=== PATIENT | male | born 1995 | race Two or more races ===

== ENCOUNTER 2017-05-10 15:12 | Outpatient (CLI) | payer OTHER ==
--- NOTE | 2017-05-10 19:19 | XRAY Report ---
EXAM: SPINE SCOLIOSIS RADIOGRAPHY EXAM DATE: 05/10/2017 03:54 PM. CLINICAL HISTORY: SCOLIOSIS screening. COMPARISONS: None. TECHNIQUE: 8 Views, includes supine and standing images. FINDINGS: Mild dextroscoliosis in the thoracic spine, angle of 12 degrees, apex at T6-T7, measured on the standing view. No significant scoliosis in the lumbar spine. No significant spondylolisthesis. No segmental anomaly seen. No acute bone findings are seen. Mild anterior wedging of T12 and L1 verte bral bodies most consistent with normal variants. Soft tissues appears unremarkable. IMPRESSION: Mild dextroscoliosis in the thoracic spine. [facility] Referring Provider Line: [phone] SITE ID: [id number]
== END 2017-05-10 15:13 | disposition home or self-care (01) ==
LOC: DI 15:12
PROVIDERS: ATTEND Family Medicine
DX: M41.84 Other forms of scoliosis, thoracic region (principal); M54.6 Pain in thoracic spine
CPT/HCPCS: 72082

== ENCOUNTER 2017-12-04 13:29 | Outpatient (CLI) | payer OTHER ==
[2017-12-04] MEDS ORDERED: BARIUM SULFATE 135 ML BOTTLE PO ONE (13:59)
[2017-12-04] MEDS ORDERED: BARIUM SULFATE 148 GM POWDER PO ONE (13:59)
--- NOTE | 2017-12-04 15:50 | XRAY Report ---
ESOPHAGRAM: 12/04/2017 CLINICAL INDICATION: Reflux. FINDINGS: Esophagram was performed in the upright and prone positions. The esophagus is normal in caliber and contractility. No esophageal ulceration, mass lesion, or stricturing is identified. The hypopharynx appears unremarkable. There was gastroesophageal reflux during the course of the study. A 13 mm barium pill passed freely through the esophagus and into the stomach. IMPRESSION: GASTROESOPHAGEAL REFLUX, BUT NO EVIDENCE OF ESOPHAGEAL ULCERATION OR MASS LESION. FLUOROSCOPY TIME: 1 MINUTE 52 SECONDS; 16 SPOT IMAGES OBTAINED. TD: 12/04/2017 15:49
== END 2017-12-04 13:30 | disposition home or self-care (01) ==
LOC: DI 13:29
PROVIDERS: ATTEND Physician Assistant Medical
DX: K21.9 Gastro-esophageal reflux disease without esophagitis (principal)
CPT/HCPCS: 74220; A9270

== ENCOUNTER 2018-11-08 17:18 | Emergency (ER) | payer OTHER ==
[2018-11-08] MEDS ORDERED: SODIUM CHLORIDE 0.9% 1,000 ML IV ONE (20:02)
[2018-11-08] MEDS ORDERED: DEXAMETHASONE 10 MG/ML VIAL IVP STA ×2 (20:02→22:35)
[2018-11-08] MEDS ORDERED: cefTRIAXone 1 GM in SODIUM CHLORIDE 0.9% MINIBAG 100 ML IV STA (20:02)
[2018-11-08 20:17] LABS: BASOPHILS # (AUTO) 0.1 10^3/uL (0.0-0.1); BASOPHILS % (AUTO) 0.9 %; EOSINOPHILS # (AUTO) 0.2 10^3/uL (0.0-0.7); EOSINOPHILS % (AUTO) 2.5 %; HGB - HEMOGLOBIN 15.7 g/dL (14.0-18.0); LYMPHOCYTES # (AUTO) 1.3 10^3/uL (1.5-3.5); LYMPHOCYTES % (AUTO) 15.7 %; MEAN PLATELET VOLUME 7.6 fL (7.4-11.4); MONOCYTES # (AUTO) 0.7 10^3/uL (0.0-1.0); MONOCYTES % (AUTO) 8.4 %; NEUTROPHILS # (AUTO) 6.1 10^3/uL (1.5-6.6); NEUTROPHILS % (AUTO) 72.5 %; PLT - PLATELET COUNT 233 10^3/uL (130-450); RED CELL DISTRIBUTION WIDTH 12.3 % (12.0-15.0); WHITE BLOOD COUNT 8.4 x10^3/uL (4.8-10.8)
--- NOTE | 2018-11-08 20:22 | ED Physician Documentation ---
PD HPI HEENT - Stated complaint Stated Complaint: SORE/SWOLLEN THROAT - Chief complaint Chief Complaint: Heent PD PAST MEDICAL HISTORY - Past Medical History Respiratory: Asthma - Past Surgical History Past Surgical History: No - Present Medications Home Medications: Ambulatory Orders Medication Instructions Recorded Confirmed Amox/Clav 875/125 [Augmentin] 1 each PO Q12H #20 tablet 11/08/18 predniSONE [Deltasone] 10 mg PO [id number] #42 tab 11/08/18 - Allergies Allergies/Adverse Reactions: Allergies Allergy/AdvReac Type Severity Reaction Status Date / Time No Known Drug Allergies Allergy Verified 11/08/18 18:04 - Social History Does the pt smoke?: No Smoking Status: Never smoker Does the pt drink ETOH?: No Does the pt have substance abuse?: No - Immunizations Immunizations are current?: Yes Results - Vitals Vitals: Vital Signs - 24 hr 11/08/18 11/08/18 18:00 20:29 Temperature 36.4 C L 36.7 C Heart Rate 90 71 Respiratory 16 14 Rate Blood Pressure 125/94 H 118/70 O2 Saturation 97 99 Oxygen O2 Source Room air - Labs Labs: Laboratory Tests 11/08/18 11/08/18 11/08/18 19:49 20:11 20:11 WBC 8.4 RBC 5.40 Hgb 15.7 Hct 44.8 MCV 83.0 MCH 29.0 MCHC 35.0 RDW 12.3 Plt Count 233 MPV 7.6 Neut # (Auto) 6.1 Lymph # (Auto) 1.3 L [place] # (Auto) 0.7 Eos # (Auto) 0.2 Baso # (Auto) 0.1 Absolute Nucleated RBC 0.00 Nucleated RBC % 0.0 Sodium Potassium Chloride Carbon Dioxide Anion Gap BUN Creatinine Estimated GFR (MDRD) Glucose Calcium Total Bilirubin AST ALT Alkaline Phosphatase Total Protein Albumin Globulin Albumin/Globulin Ratio Lipase Infectious [place] Assay NEGATIVE Group A Strep Rapid Negative 11/08/18 20:11 WBC RBC Hgb Hct MCV MCH MCHC RDW Plt Count MPV Neut # (Auto) Lymph # (Auto) [place] # (Auto) Eos # (Auto) Baso # (Auto) Absolute Nucleated RBC Nucleated RBC % Sodium 137 Potassium 3.8 Chloride 97 L Carbon Dioxide 30 Anion Gap 10.0 BUN 11 Creatinine 0.8 Estimated GFR (MDRD) 121 Glucose 97 Calcium 9.2 Total Bilirubin 1.5 H AST 18 ALT 16 Alkaline Phosphatase 37 L Total Protein 8.6 H Albumin 4.3 Globulin 4.3 H Albumin/Globulin Ratio 1.0 Lipase 27 Infectious [place] Assay Group A Strep Rapid Departure - Departure Disposition: Home, Self Care Clinical Impression: Peritonsillar abscess Condition: Good Instructions: Peritonsillar Abscess Follow-Up: [facility] [Provider Group] - Tomorrow (Call first thing in the morning to schedule an appointment for tomorrow) Prescriptions: Amox/Clav 875/125 [Augmentin] 1 each PO Q12H #20 tablet predniSONE [Deltasone] 10 mg PO [id number] #42 tab Comments: Please return to the emergency department for worsening symptoms or any concerns
[2018-11-08 20:28] LABS: ALBUMIN 4.3 g/dL (3.2-5.5); BILIRUBIN,TOTAL 1.5 mg/dL (0.2-1.0); CALCIUM 9.2 mg/dL (8.5-10.3); CREATININE 0.8 mg/dL (0.6-1.2); TOTAL PROTEIN 8.6 g/dL (6.7-8.2)
[2018-11-08] MEDS ORDERED: IOVERSOL 320 100 ML VIAL IVP ONE ×2 (21:06→21:24)
--- NOTE | 2018-11-08 21:45 | CT Report ---
Reason: left sided swelling, Evaluate for Localized fluid Procedure Date: 11/08/2018 Accession Number: [id number] / [id number] Procedure: CT - Neck Soft Tissue W/ CPT Code: FULL RESULT: EXAM: CT SOFT TISSUE NECK WITH CONTRAST. EXAM DATE: 11/08/2018 09:27 PM. HISTORY: 23-year-old man with left-sided swelling. Concern for localized fluid. COMPARISONS: None. TECHNIQUE: Routine soft tissue neck CT protocol. Reconstructions: Coronal and sagittal. IV contrast: 72ml [id number]. In accordance with CT protocol optimization, one or more of the following dose reduction techniques were utilized for this exam: automated exposure control, adjustment of mA and/or KV based on patient size, or use of iterative reconstructive technique. FINDINGS: Visualized Intracranial Contents: Unremarkable. Orbits: Unremarkable. Sinuses: Minimal mucosal thickening is present in the paranasal sinuses. Mastoid air cells are clear. Pharynx and Oral Cavity: There is enlargement of the right palatine tonsil with peripherally enhancing fluid collection and measures 2.1 cm AP by 1.6 cm transverse by 1.9 cm craniocaudal, and sister with peritonsillar abscess. There is minimal stranding in the adjacent parapharyngeal fat planes. Larynx: Symmetric without mass lesion. True vocal cords are symmetric. Airway is widely patent. Parotid and Submandibular Glands: Normal. Lymph Nodes and Soft Tissues: Lymph nodes are mildly enlarged along the right cervical chain, consistent with reactive lymphadenopathy. Soft tissues are unremarkable. No mass lesion or abnormal enhancement. Thyroid: Normal. Lung Apices: Clear. Bones: No acute fracture or malalignment. IMPRESSION: 1. Peripherally enhancing fluid collection at the right palatine tonsil measuring 2.1 x 1.6 x 1.9 cm, most consistent with peritonsillar abscess. [facility]
[2018-11-08] MEDS ORDERED: BENZOCAINE SPRAY MM SCH (22:00)
[2018-11-08] MEDS ORDERED: CHERRY SYRUP 10 ML UDC PO ONE (22:17)
[2018-11-08 23:32] VITALS: BP 125/71
--- NOTE | 2018-11-09 02:23 | ED Physician Documentation ---
PD HPI HEENT - Stated complaint Stated Complaint: SORE/SWOLLEN THROAT - Chief complaint Chief Complaint: Heent - History obtained from History obtained from: Patient - Additional information Additional information: 23-year-old male presents the emergency department with increasing right-sided throat pain over the past several days. The patient's had increased swelling. The patient has no tongue swelling or difficulty swallowing. The patient does report difficulty opening his mouth all the way. The patient reports fever. No relieving factors. No triggering factors. Symptoms are described as severe Review of Systems Constitutional: denies: Fever, Fatigue Eyes: denies: Discharge Ears: denies: Ear pain Nose: denies: Congestion Throat: reports: Sore throat, Swollen tonsils Cardiac: denies: Chest pain / pressure Respiratory: denies: Cough GI: denies: Abdominal Pain : denies: Dysuria Skin: denies: Rash Musculoskeletal: denies: Neck pain Neurologic: reports: Generalized weakness. denies: Focal weakness Immunocompromised: denies: Chemotherapy PD PAST MEDICAL HISTORY - Past Medical History Respiratory: Asthma - Past Surgical History Past Surgical History: No - Present Medications Home Medications: Ambulatory Orders Medication Instructions Recorded Confirmed Amox/Clav 875/125 [Augmentin] 1 each PO Q12H #20 tablet 11/08/18 predniSONE [Deltasone] 10 mg PO [id number] #42 tab 11/08/18 - Allergies Allergies/Adverse Reactions: Allergies Allergy/AdvReac Type Severity Reaction Status Date / Time No Known Drug Allergies Allergy Verified 11/08/18 18:04 - Social History Does the pt smoke?: No Smoking Status: Never smoker Does the pt drink ETOH?: No Does the pt have substance abuse?: No - Immunizations Immunizations are current?: Yes PD ED PE NORMAL - General General: Alert and oriented X 3. No: No acute distress (The patient appears quite uncomfortable) - HEENT HEENT: Atraumatic, PERRL, EOMI, Ears normal - Neck Neck: Supple, no meningeal sign - Cardiac Cardiac: RRR, Strong equal pulses - Respiratory Respiratory: No respiratory distress - Abdomen Abdomen: Soft, Non tender - Back Back: No CVA TTP - Derm Derm: Normal color - Extremities Extremities: No deformity - Neuro Neuro: Alert and oriented X 3, Normal speech - Psych Psych: Normal mood PD ED PE EXPANDED - HEENT HEENT: Moist mucous membranes, Pharyngeal erythema, Swollen tonsils, Tonsillar exudate, [employer] (The patient has a right peritonsillar abscess, the uvula is edematous. The right tonsil has exudate. The left peritonsillar area is within normal limits. The patient has no stridor. The floor the mouth is moist and soft) Results - Vitals Vitals: Vital Signs - 24 hr 11/08/18 11/08/18 11/08/18 18:00 20:29 23:32 Temperature 36.4 C L 36.7 C 37.2 C Heart Rate 90 71 73 Respiratory 16 14 16 Rate Blood Pressure 125/94 H 118/70 125/71 O2 Saturation 97 99 100 Oxygen O2 Source Room air - Labs Labs: Laboratory Tests 11/08/18 11/08/18 11/08/18 19:49 20:11 20:11 WBC 8.4 RBC 5.40 Hgb 15.7 Hct 44.8 MCV 83.0 MCH 29.0 MCHC 35.0 RDW 12.3 Plt Count 233 MPV 7.6 Neut # (Auto) 6.1 Lymph # (Auto) 1.3 L [place] # (Auto) 0.7 Eos # (Auto) 0.2 Baso # (Auto) 0.1 Absolute Nucleated RBC 0.00 Nucleated RBC % 0.0 Sodium Potassium Chloride Carbon Dioxide Anion Gap BUN Creatinine Estimated GFR (MDRD) Glucose Calcium Total Bilirubin AST ALT Alkaline Phosphatase Total Protein Albumin Globulin Albumin/Globulin Ratio Lipase Infectious [place] Assay NEGATIVE Group A Strep Rapid Negative 11/08/18 20:11 WBC RBC Hgb Hct MCV MCH MCHC RDW Plt Count MPV Neut # (Auto) Lymph # (Auto) [place] # (Auto) Eos # (Auto) Baso # (Auto) Absolute Nucleated RBC Nucleated RBC % Sodium 137 Potassium 3.8 Chloride 97 L Carbon Dioxide 30 Anion Gap 10.0 BUN 11 Creatinine 0.8 Estimated GFR (MDRD) 121 Glucose 97 Calcium 9.2 Total Bilirubin 1.5 H AST 18 ALT 16 Alkaline Phosphatase 37 L Total Protein 8.6 H Albumin 4.3 Globulin 4.3 H Albumin/Globulin Ratio 1.0 Lipase 27 Infectious [place] Assay Group A Strep Rapid Procedures - Abscess I&D (location) right Other Preparation: Topical spray Incision: Needle aspiration Other: Pt tolerated well, Antibiotic prescribed, Other (A right peritonsillar drainage was performed. An 18-gauge needle was inserted into the area of most fluctuance. There was no significant purulent drainage. There was scant purulent drainage. The patient tolerated procedure without any difficulty) PD MEDICAL DECISION MAKING - ED course ED course: A peritonsillar abscess drainage was attempted. There was no significant purulent drainage. I discussed the case with the on-call ENT from [facility] I discussed the case with Dr. Hall. He recommends continuing steroids and antibiotics and agrees to follow the patient up in clinic. Currently, he does not feel that the patient requires transfer for any further drainage at this point. The findings and plan were discussed with the patient who understands and agrees to the plan. I discussed warning signs and recommended returning to the emergency department immediately for any worsening or any concerns Departure - Departure Disposition: 01 Home, Self Care Clinical Impression: Peritonsillar abscess Condition: Good Instructions: Peritonsillar Abscess Follow-Up: [facility] [Provider Group] - Tomorrow (Call first thing in the morning to schedule an appointment for tomorrow) Prescriptions: Amox/Clav 875/125 [Augmentin] 1 each PO Q12H #20 tablet predniSONE [Deltasone] 10 mg PO [id number] #42 tab Comments: Please return to the emergency department for worsening symptoms or any concerns Forms: Activity restrictions Discharge Date/Time: 11/08/18 23:33
== END 2018-11-08 23:33 | disposition home or self-care (01) ==
LOC: ED 17:18
DX: J36 Peritonsillar abscess (principal)
CPT/HCPCS: 36415; 42700; 70491; 80053; 83690; 85025; 86308; 87070; 87430; 96361; 96365; 96375; 96376; 99283; A9270; Q9967

== ENCOUNTER 2019-02-25 10:57 | Outpatient (CLI) | payer OTHER ==
--- NOTE | 2019-02-25 12:27 | XRAY Report ---
Reason: SCOLIOSIS,THORACOLUMBAR Procedure Date: 02/25/2019 Accession Number: [id number] / [id number] Procedure: WCP - Lumbar Spine 2 View CPT Code: FULL RESULT: EXAM: LUMBOSACRAL SPINE RADIOGRAPHY EXAM DATE: 02/25/2019 11:18 AM. CLINICAL HISTORY: SCOLIOSIS,THORACOLUMBAR. COMPARISONS: SPINE SCOLIOSIS STUDY 2-3V 05/10/2017 3:27 PM. TECHNIQUE: 2 views. FINDINGS: Alignment: There is minimal levoconvex scoliosis centered about L4, possibly positional. No listhesis. Bones: Five lbz-snf-bojafus lumbar vertebral bodies are present. No fractures or bone lesions. Disks: Normal. Disk heights are maintained. Facets: There are no significant degenerative changes. There is the suggestion of a left L5 pars defect. Sacroiliac Joints: Unremarkable. Soft Tissues: Normal. The visualized bowel gas pattern is normal. IMPRESSION: Questionable minimal levoconvex lumbar scoliosis, possibly due to a suspected left L5 pars defect. [facility]
--- NOTE | 2019-02-25 12:31 | XRAY Report ---
Reason: SCOLIOSIS,THORACOLUMBAR Procedure Date: 02/25/2019 Accession Number: [id number] / [id number] Procedure: WCP - Thoracic Spine 2 View CPT Code: FULL RESULT: EXAM: THORACIC SPINE RADIOGRAPHY EXAM DATE: 02/25/2019 11:18 AM. CLINICAL HISTORY: Scoliosis, thoracolumbar. COMPARISON: SPINE SCOLIOSIS STUDY 2-3V 05/10/2017 3:27 PM. TECHNIQUE: 2 views. FINDINGS: Alignment: Mild dextroconvex thoracic scoliosis centered about T6, slightly increased compared to 2017. No listhesis. Bones: No fractures or bone lesions. Disks: Normal. Disk heights are maintained. Soft Tissues: Normal. The visualized lungs and cardiomediastinal silhouette are normal. IMPRESSION: Slight interval increase of mild dextroconvex thoracic scoliosis. Please note that given slight interval increase in the thoracic scoliosis, the apparent development of mild lumbar scoliosis is felt to more likely be a compensatory development related to the thoracic finding. [facility]
== END 2019-02-25 10:58 | disposition home or self-care (01) ==
LOC: DI.WCP 10:57
PROVIDERS: ATTEND Family Medicine
DX: M41.84 Other forms of scoliosis, thoracic region (principal)
CPT/HCPCS: 72070; 72100

== ENCOUNTER 2019-07-04 08:00 | Outpatient (CLI) | payer OTHER ==
[2019-07-04 21:51] LABS: TRICHOMONAS VAGINALIS DNA NEGATIVE (NEGATIVE)
[2019-07-05 13:36] LABS: HIV AG/AB 4TH GEN NON-REACTIVE (NON-REACTIVE)
[2019-07-05 15:28] LABS: HEPATITIS C ANTIBODY NON-REACTIVE (NON-REACTIVE)
[2019-07-06 14:27] LABS: HSV 1 IGG TYPE SPECIFIC AB 1.43 index; HSV 2 IGG TYPE SPECIFIC AB <0.90 index
== END 2019-07-04 23:59 | disposition home or self-care (01) ==
LOC: LAB.WCP 08:00
PROVIDERS: ATTEND Family Medicine
DX: Z11.3 Encounter for screening for infections with a predominantly sexual mode of transmission (principal)
CPT/HCPCS: 36415; 81599; 86592; 86695; 86696; 86803; 87389; 87491; 87591; 87661

== ENCOUNTER 2019-09-16 15:39 | Outpatient (CLI) | payer OTHER ==
--- NOTE | 2019-09-16 16:33 | Ultrasound Report ---
Reason: ABD WALL HERNIA Procedure Date: 09/16/2019 Accession Number: [id number] / [id number] Procedure: US - Abdomen Limited CPT Code: Final Report FULL RESULT: EXAM: ABDOMEN ULTRASOUND LIMITED EXAM DATE: 09/16/2019 04:26 PM. CLINICAL HISTORY: ABD WALL HERNIA. Right lower quadrant abdominal pain intermittently for 2-3 years. COMPARISON: None. TECHNIQUE: Real-time scanning was performed with static images obtained. IMPRESSION: In the right anterior abdominal wall near the level of the umbilicus in the area of concern indicated by the patient, no spigelian or other hernia is identified at rest or with Valsalva maneuver. [facility]
== END 2019-09-16 15:40 | disposition home or self-care (01) ==
LOC: DI 15:39
PROVIDERS: ATTEND Family Medicine
DX: K46.9 Unspecified abdominal hernia without obstruction or gangrene (principal)
CPT/HCPCS: 76705

== ENCOUNTER 2019-10-06 13:35 | Outpatient (CLI) | payer OTHER ==
[2019-10-06] MEDS ORDERED: IOVERSOL 320 100 ML VIAL IVP ONE ×2 (13:47→15:48)
[2019-10-06] MEDS ORDERED: IOVERSOL 320 50 ML VIAL ONE (13:47)
[2019-10-06] MEDS ORDERED: IOVERSOL 320 50 ML VIAL PO ONE (15:48)
--- NOTE | 2019-10-07 22:50 | CT Report ---
Reason: ABD WALL HERNIA Procedure Date: 10/06/2019 Accession Number: [id number] / [id number] Procedure: CT - Abdomen/Pelvis W CPT Code: Final Report FULL RESULT: EXAM: CT ABDOMEN AND PELVIS EXAM DATE: 10/06/2019 03:08 PM. CLINICAL HISTORY: ABD WALL HERNIA. COMPARISONS: None. TECHNIQUE: Routine helical CT imaging was performed through the abdomen and pelvis. IV contrast: OPTI 320 100ML. Enteric contrast: Yes. Reconstructions: Coronal and sagittal. In accordance with CT protocol optimization, one or more of the following dose reduction techniques were utilized for this exam: automated exposure control, adjustment of mA and/or KV based on patient size, or use of iterative reconstructive technique. FINDINGS: ABDOMEN: Lung Bases: Incompletely included lower lungs are grossly clear. Heart size is within normal limits. No basilar effusions. Liver: Unremarkable. Spleen: Unremarkable. Pancreas: Unremarkable. Gallbladder/Bile Ducts: Gallbladder is unremarkable. Biliary tree is normal caliber. Adrenal Glands: Unremarkable. Kidneys: No mass, calculi, or hydronephrosis. 7 mm cyst in the right kidney. Peritoneum/Mesentery/Bowel: No free fluid, free air, or collection. No intestinal obstruction or inflammation. No hernias. The appendix is within normal limits. Lymph nodes: No mesenteric, periportal, or retroperitoneal lymphadenopathy. Vasculature: Abdominal aorta is nonaneurysmal. Portal vein is patent. Hepatic veins are patent. PELVIS: The bladder is unremarkable for the degree of distention. Prostate is present. No pelvic lymphadenopathy. No inguinal hernia. Bones: No suspicious osseous lesions. IMPRESSION: No acute abnormalities. No hernia. [facility]
== END 2019-10-06 13:36 | disposition home or self-care (01) ==
LOC: DI 13:35
PROVIDERS: ATTEND Nurse Practitioner Family
DX: K46.9 Unspecified abdominal hernia without obstruction or gangrene (principal)
CPT/HCPCS: 74177; Q9967

== ENCOUNTER 2019-11-04 08:00 | Outpatient (CLI) | payer OTHER | END 2019-11-04 23:59 | disposition home or self-care (01) | LOC: LAB.R 08:00 | PROVIDERS: ATTEND Nurse Practitioner Family | DX: J02.9 Acute pharyngitis, unspecified (principal) | CPT/HCPCS: 87070 ==